=== PATIENT | female | born 1970 | race Two or more races ===

== ENCOUNTER → 2022-01-31 08:39 | Outpatient (CLI) | payer BC, SELFPAY ==
[2022-01-31 19:48] LABS: Benzodiazepines Screen,Urine Negative ng/ml (<200)
[2022-01-31 19:49] LABS: Amphetamine/Metha Screen,Urine Negative ng/ml (<1000)
[2022-01-31 19:50] LABS: Barbiturates Screen,Urine Negative ng/ml (<200); Cannabinoid Screen,Urine Negative ng/ml (<50)
[2022-01-31 19:51] LABS: Cocaine Screen,Urine Negative ng/ml (<300); Methadone Screen,Urine Negative ng/ml (<300)
[2022-01-31 19:52] LABS: Opiate Screen,Urine Positive ng/ml (<300)
[2022-01-31 19:53] LABS: Phencyclidine Screen,Urine Negative ng/ml (<25)
== END ==
PROVIDERS: PCP Emergency Medicine; Visit Provider Emergency Medicine
DX: M06.9 Rheumatoid arthritis, unspecified (principal); Z79.899 Other long term (current) drug therapy
CPT/HCPCS: 80305

== ENCOUNTER → 2022-03-30 09:08 | Outpatient (CLI) | payer BC, SELFPAY ==
[2022-03-29 19:24] LABS: Barbiturates Screen,Urine Negative ng/ml (<200); Benzodiazepines Screen,Urine Negative ng/ml (<200)
[2022-03-29 19:25] LABS: Amphetamine/Metha Screen,Urine Negative ng/ml (<1000)
[2022-03-29 19:26] LABS: Cannabinoid Screen,Urine Negative ng/ml (<50); Cocaine Screen,Urine Negative ng/ml (<300)
[2022-03-29 19:27] LABS: Methadone Screen,Urine Negative ng/ml (<300)
[2022-03-29 19:28] LABS: Opiate Screen,Urine Positive ng/ml (<300); Phencyclidine Screen,Urine Negative ng/ml (<25)
== END ==
PROVIDERS: PCP Emergency Medicine; Visit Provider Emergency Medicine
DX: Z79.899 Other long term (current) drug therapy (principal)
CPT/HCPCS: 80305

== ENCOUNTER 2022-07-08 12:40 | Emergency (ER) | payer BC, SELFPAY ==
--- NOTE | 2022-07-08 12:57 | XR_ITS ---
FINAL REPORT CLINICAL HISTORY: PAIN FINDINGS: Right femur Two views were obtained. There is no acute fracture or dislocation. There are post ORIF changes. The hardware is unremarkable. The joint spaces appear normal. No soft tissue abnormality is identified. IMPRESSION: No acute process. Reviewed, Interpreted and Dictated by Nelson Overton MD Transcribed by Aniyah Zaldivar Authenticated and [facility]
--- NOTE | 2022-07-08 12:57 | XR_ITS ---
FINAL REPORT CLINICAL HISTORY: TWISTED HER HIP WHEN A CAT RAN BETWEEN HER LEGS FINDINGS: Right hip Three views were obtained. There is no acute fracture or dislocation. There are post ORIF changes of the right femur. There is no acute bony or hardware abnormality. The joint spaces appear normal. No soft tissue abnormality is identified. IMPRESSION: No acute process. Reviewed, Interpreted and Dictated by Nelson Overton MD Transcribed by Aniyah Zaldivar Authenticated and [facility]
[2022-07-08 13:00] VITALS: BP 148/92; PULSE 67; RESP 19; TEMP 37; O2SAT 99; BMI 28.0
--- NOTE | 2022-07-08 13:16 | EXP.UTC ---
Discharge Plan Disposition Patient Disposition: Home, Self-Care Condition: Good Prescriptions Prescriptions: No Action pregabalin [Lyrica] 150 mg capsule 150 mg PO BID albuterol sulfate [ProAir HFA] 90 mcg/actuation HFA aerosol inhaler 2 puff INHALATION Q4-6H PRN methocarbamol 750 mg tablet 750 mg PO BID PRN Spiriva with HandiHaler 18 mcg capsule, w/inhalation device 1 cap IH DAILY Rx Instructions: puncture 1 cap using device; one dose = 2 inhalations Flovent Diskus 50 mcg/actuation blister with device 1 inh IH BID nystatin [Nyamyc] 100,000 unit/gram powder 1 applic TP DAILY Qty: 60 0RF clotrimazole-betamethasone 1-0.05 % cream 1 applic TP BID Qty: 45 0RF clonazepam 0.5 mg tablet 0.5 mg PO DAILY Qty: 30 1RF oxycodone-acetaminophen [Percocet] 7.5-325 mg tablet 1 tab PO QID PRN (Reason: pain) Qty: 120 0RF duloxetine 60 mg capsule,delayed release(DR/EC) See Rx Instructions .ROUTE .COMPLEX Qty: 30 1RF Dose Instruction: TAKE 1 CAPSULE BY MOUTH EVERY DAY Rx Instructions: TAKE 1 CAPSULE BY MOUTH EVERY DAY amlodipine [Norvasc] 5 mg tablet 5 mg PO DAILY Qty: 30 0RF Referrals Follow up/Referrals: Kavon Flynn MD [Primary Care Provider] - See instructions Activity Restrictions/Add. Instructions Additional Instructions/Restrictions: *weight bearing as tolerated *RICE, Rest the extremity, Ice 15-20 minutes 3-4 times daily, Compress- wear the peter wrap as discussed as much as possible to help reduce swelling and pain, Elevate the extremity when at rest Follow up with your Orthopedic Surgeon if pain continues *Ibuprofen 600-800mg every 6-8 hours as needed for pain an inflammation. If need something more can take Tylenol in between doses of Ibuprofen to help if you can take them Immediately follow up with your family doctor for new or worsening of symptoms, or no noticeable improvement over the next 3-5 days Clinical Impressions Clinical Impression: Leg pain Instructions Patient Instructions: DI for Hip Pain, DI for Leg Pain Discharge ED Provider: Keri Clements [facility] [place] HPI General Stated complaint: right side hip/back/leg pain Source of Information: Patient Time Seen by Provider: 07/08/22 13:17 Description of Symptoms (Recalled from Triage Doc. by RN): pt states that she had a rt hip replacement back in december and she was home 2 days ago and her cat ran between her legs causing her to twist hard and is now having pain in that hip and wants to make sure she hasn't injured it HEENT Symptoms (Recalled from RN notes): No Resp Symptoms (Recalled from RN notes): No Skin Symptoms (Recalled from RN notes): No MS Symptoms (Recalled from RN notes): Yes Functional Status (Recalled from RN notes): wnl History of Present Illness Provider Complaint: Patient states that she had surgery in December and had hip replacement and mahamed placed State that she has been doing ok but a couple days ago her cat ran between her legs and slipped but didnt fall and she said she has been having pain ever since in her hip and leg area States that she wanted to come in and get an xray to make sure she didnt hurt anything Related Data Home Medications Medication Instructions Recorded Confirmed albuterol sulfate 90 mcg/actuation 2 puff inhalation Q4-6H PRN 12/27/21 05/27/22 aerosol inhaler (ProAir HFA) pregabalin 150 mg capsule (Lyrica) 150 mg PO BID 12/27/21 05/27/22 fluticasone propionate 50 1 inh inhalation BID 03/29/22 05/27/22 mcg/actuation blister powder for inhalation (Flovent Diskus) methocarbamol 750 mg tablet 750 mg PO BID PRN 03/29/22 05/27/22 tiotropium bromide 18 mcg capsule 1 cap inhalation DAILY 03/29/22 05/27/22 with inhalation device (Spiriva with HandiHaler) Previous Rx's Medication Instructions Recorded duloxetine 60 mg capsule,delayed See Rx Instructions .Route 05/25/22 release .COMPLEX #30 caps clonazepam 0.5 mg tablet 0.5 mg PO BAN
[2022-07-08 14:27] VITALS: BP 148/92; PULSE 67; RESP 19; TEMP 37; O2SAT 99
== END 2022-07-08 14:28 | disposition home or self-care (01) ==
PROVIDERS: Emergency Provider Nurse Practitioner; PCP Emergency Medicine
DX: M25.551 Pain in right hip (principal); M79.604 Pain in right leg; M54.9 Dorsalgia, unspecified; I10 Essential (primary) hypertension; F17.200 Nicotine dependence, unspecified, uncomplicated; Z79.51 Long term (current) use of inhaled steroids; Z79.899 Other long term (current) drug therapy; Z88.2 Allergy status to sulfonamides; Z96.641 Presence of right artificial hip joint; W01.0XXA Fall on same level from slipping, tripping and stumbling without subsequent striking against object, initial encounter
CPT/HCPCS: 73502; 73552; 99213; G0463

== ENCOUNTER → 2022-10-31 14:20 | Outpatient (CLI) | payer BC, SELFPAY ==
[2022-10-31 19:41] LABS: Amphetamine/Metha Screen,Urine Negative ng/ml (<1000)
[2022-10-31 19:42] LABS: Barbiturates Screen,Urine Negative ng/ml (<200); Benzodiazepines Screen,Urine Negative ng/ml (<200)
[2022-10-31 19:43] LABS: Cannabinoid Screen,Urine Negative ng/ml (<50); Cocaine Screen,Urine Negative ng/ml (<300)
[2022-10-31 19:44] LABS: Methadone Screen,Urine Negative ng/ml (<300)
[2022-10-31 19:45] LABS: Opiate Screen,Urine Negative ng/ml (<300); Phencyclidine Screen,Urine Negative ng/ml (<25)
== END ==
PROVIDERS: PCP Emergency Medicine; Visit Provider Emergency Medicine
DX: Z79.899 Other long term (current) drug therapy (principal)
CPT/HCPCS: 80305

== ENCOUNTER → 2023-06-16 23:43 | Outpatient (CLI) | payer BC, SELFPAY ==
[2023-06-16 19:22] LABS: Benzodiazepines Screen,Urine Negative ng/ml (<200)
[2023-06-16 19:23] LABS: Amphetamine/Metha Screen,Urine Negative ng/ml (<1000); Barbiturates Screen,Urine Negative ng/ml (<200)
[2023-06-16 19:24] LABS: Methadone Screen,Urine Negative ng/ml (<300)
[2023-06-16 19:25] LABS: Cannabinoid Screen,Urine Negative ng/ml (<50); Cocaine Screen,Urine Negative ng/ml (<300)
[2023-06-16 19:27] LABS: Opiate Screen,Urine Positive ng/ml (<300); Phencyclidine Screen,Urine Negative ng/ml (<25)
== END ==
PROVIDERS: PCP Emergency Medicine; Visit Provider Emergency Medicine
DX: Z79.899 Other long term (current) drug therapy (principal)
CPT/HCPCS: 80305

== ENCOUNTER 2023-10-10 07:13 | Outpatient (CLI) | payer BC, SELFPAY ==
[2023-10-10 20:25] LABS: Amphetamine/Metha Screen,Urine Negative ng/ml (<1000); Barbiturates Screen,Urine Negative ng/ml (<200); Benzodiazepines Screen,Urine Negative ng/ml (<200); Cannabinoid Screen,Urine Negative ng/ml (<50); Cocaine Screen,Urine Negative ng/ml (<300); Methadone Screen,Urine Negative ng/ml (<300); Opiate Screen,Urine Positive ng/ml (<300); Phencyclidine Screen,Urine Negative ng/ml (<25)
[2023-10-19 13:21] LABS: Alprazolam Negative (Cutoff=100); Benzodiazepines Negative ng/mL (Cutoff=100); Clonazepam Negative (Cutoff=100); Flurazepam Negative (Cutoff=100); Lorazepam Negative (Cutoff=100); Midazolam Negative (Cutoff=100); Opiates Negative (Cutoff=100); Oxycodone (GC/MS) >3000 ng/mL (Cutoff=100); Oxymorphone (GC/MS) 1031 ng/mL (Cutoff=100); Temazepam Negative (Cutoff=100); Triazolam Negative (Cutoff=100)
== END 2023-10-10 23:59 ==
LOC: LAB.DROPOF 10-11 07:15
PROVIDERS: PCP Internal Medicine; Visit Provider Internal Medicine
DX: Z79.899 Other long term (current) drug therapy (principal)
CPT/HCPCS: 80307; 80346; 80361; 80365; 87086; G0480

== ENCOUNTER 2023-10-12 10:32 | Outpatient (CLI) | payer BC, SELFPAY | END 2023-10-12 23:59 | LOC: LAB.DROPOF 10-20 10:32 | PROVIDERS: PCP Internal Medicine; Visit Provider Internal Medicine | DX: Z79.899 Other long term (current) drug therapy (principal) | CPT/HCPCS: 80346; 80361; 80365; G0480 ==

== ENCOUNTER 2023-11-30 18:18 | Outpatient (CLI) | payer BC, SELFPAY ==
[2023-11-30 18:06] LABS: Alanine Aminotransferase 15 U/L (12-78); Albumin Level 4.1 g/dl (3.5-5.0); Albumin/Globulin Ratio 1.3 (1.1-1.8); Alkaline Phosphatase 158 U/L (38-126); Anion Gap 11.1 mEq/L (5-15); Aspartate Amino Transferase 25 U/L (14-36); Basophils % 0.2 % (0.1-2.0); Bilirubin,Total 0.2 mg/dl (0.2-1.3); Blood Urea Nitrogen 6 mg/dl (7-17); Calcium 9.9 mg/dl (8.4-10.2); Carbon Dioxide 32 mmol/L (22.0-30.0); Chloride 101 mmol/L (98-107); Chol/HDL Ratio 5.6 (1-3.5); Cholesterol 225 mg/dl (140-200); Eosinophils # 0.1 K/mm3 (0.0-0.4); Eosinophils % 1.4 % (0.1-12.0); Estimated Glomerular Filt Rate 105 ml/min (>60); GFR (African American) 128 ML/MIN (>60); Globulin 3.1 g/dL (1.3-3.2); Glucose 115 mg/dl (74-100); HDL Cholesterol 40 mg/dl (40-60); Hemoglobin 9.6 g/dL (12.2-16.2); Lymphocytes # 2.3 K/mm3 (0.7-4.5); Lymphocytes % 23.8 % (10-50); Mean Corpuscular HGB Conc 35.3 g/dL (31.8-35.4); Mean Corpuscular Hemoglobin 30.5 pg (27.0-31.2); Mean Corpuscular Volume 86.2 fl (81-99); Mean Platelet Volume 8.9 fl (7.4-10.4); Monocytes # 0.6 K/mm3 (0.1-1.0); Monocytes % 6.7 % (1.7-9.3); Neutrophils # 6.5 K/mm3 (1.8-7.8); Neutrophils % 67.9 % (37.0-80.0); Platelet Count 575 K/mm3 (142-424); Potassium 4.1 mmoL/L (3.5-5.1); Red Blood Count 3.14 M/mm3 (4.20-5.40); Red Cell Distribution Width 16.7 % (11.5-17.5); Sodium 140 mmol/L (136-145); Total Protein,Serum 7.2 g/dl (6.3-8.2); Triglycerides 238 mg/dl (30-150); VLDL Cholesterol 48 mg/dL (0-40); White Blood Count 9.6 K/mm3 (4.8-10.8)
[2023-11-30 18:17] LABS: Direct LDL Cholesterol 128.55 mg/dL (100-129)
[2023-11-30 18:23] LABS: 25-OH Vitamin D, Total 29.7 ng/mL (30-100)
[2023-11-30 19:41] LABS: Microalbumin/Creatinine Ratio 24.6
[2023-11-30 19:46] LABS: Creatinine,Urine Random 94 mg/dL (Not Estab.)
== END 2023-11-30 23:59 ==
LOC: LAB.DROPOF 18:18
PROVIDERS: PCP Internal Medicine; Visit Provider Internal Medicine
DX: R53.83 Other fatigue (principal); E55.9 Vitamin D deficiency, unspecified; Z68.23 Body mass index [BMI] 23.0-23.9, adult
CPT/HCPCS: 80053; 80061; 82043; 82306; 82570; 85025

== ENCOUNTER 2023-12-25 19:05 | Outpatient (CLI) | payer BC, SELFPAY ==
[2023-12-25 18:40] LABS: Basophils % 0.5 % (0.1-2.0); Eosinophils % 0.1 % (0.1-12.0); Hematocrit 33.1 % (37.0-47.0); Hemoglobin 9.8 g/dL (12.2-16.2); Lymphocytes # 1.1 K/mm3 (0.7-4.5); Lymphocytes % 11.9 % (10-50); Mean Corpuscular HGB Conc 29.5 g/dL (31.8-35.4); Mean Corpuscular Hemoglobin 24.3 pg (27.0-31.2); Mean Corpuscular Volume 82.5 fl (81-99); Mean Platelet Volume 9.5 fl (7.4-10.4); Monocytes # 0.2 K/mm3 (0.1-1.0); Monocytes % 2.3 % (1.7-9.3); Neutrophils # 7.7 K/mm3 (1.8-7.8); Neutrophils % 85.2 % (37.0-80.0); Platelet Count 526 K/mm3 (142-424); Red Blood Count 4.01 M/mm3 (4.20-5.40); Red Cell Distribution Width 16.6 % (11.5-17.5); White Blood Count 9.1 K/mm3 (4.8-10.8)
[2023-12-25 18:45] LABS: MANUAL DIFFERENTIAL MANUAL DIFFERENTIAL (MANUAL DIFF)
[2023-12-25 19:38] LABS: Eosinophils % 1 % (0-3); Hypochromasia 2+; Lymphocytes % 17 % (10-50); Monocytes % 1 % (2-9); Neutrophils % 81 % (42-76); Platelet Estimate Slight Increase; Total Cells Counted 100
[2023-12-25 20:06] LABS: Vitamin B12 342 pg/mL (239-931)
[2023-12-25 21:29] LABS: Iron 31 ug/dL (37-170)
[2023-12-25 21:38] LABS: Total Iron Binding Capacity 480 ug/dL (265-497)
[2023-12-25 22:04] LABS: Ferritin 6.68 ng/ml (11.1-264)
[2023-12-27 17:42] LABS: Peripheral Smear Review Scanned Result
== END 2023-12-25 23:59 ==
LOC: LAB.DROPOF 19:06
PROVIDERS: PCP Internal Medicine; Visit Provider Internal Medicine
DX: R53.83 Other fatigue (principal); F41.9 Anxiety disorder, unspecified; Z79.899 Other long term (current) drug therapy; F32.A Depression, unspecified
CPT/HCPCS: 82607; 82728; 83540; 83550; 83735; 85007; 85025

== ENCOUNTER 2024-02-29 11:59 | Outpatient (CLI) | payer BC, SELFPAY ==
[2024-02-29 18:20] LABS: Basophils % 0.3 % (0.1-2.0); Eosinophils # 0.1 K/mm3 (0.0-0.4); Eosinophils % 0.8 % (0.1-12.0); Hematocrit 36.7 % (37.0-47.0); Hemoglobin 11.2 g/dL (12.2-16.2); Lymphocytes % 12.6 % (10-50); Mean Corpuscular HGB Conc 30.4 g/dL (31.8-35.4); Mean Corpuscular Hemoglobin 25.3 pg (27.0-31.2); Mean Corpuscular Volume 83.2 fl (81-99); Mean Platelet Volume 9.8 fl (7.4-10.4); Monocytes # 0.2 K/mm3 (0.1-1.0); Monocytes % 2.2 % (1.7-9.3); Neutrophils # 6.4 K/mm3 (1.8-7.8); Neutrophils % 84.1 % (37.0-80.0); Platelet Count 702 K/mm3 (142-424); Red Blood Count 4.42 M/mm3 (4.20-5.40); Red Cell Distribution Width 24.4 % (11.5-17.5); White Blood Count 7.6 K/mm3 (4.8-10.8)
[2024-03-02 18:13] LABS: Peripheral Smear Review Scanned Result
== END 2024-02-29 23:59 | disposition home or self-care (01) ==
LOC: LAB.DROPOF 03-01 11:59
PROVIDERS: PCP Internal Medicine; Visit Provider Internal Medicine
DX: M79.7 Fibromyalgia (principal)
CPT/HCPCS: 85025

== ENCOUNTER 2024-04-15 16:35 | Emergency (ER) | payer BC, SELFPAY ==
[2024-04-15 17:29] VITALS: BP 140/84; PULSE 104; O2SAT 99
[2024-04-15 17:30] VITALS: BP 140/84; PULSE 104; RESP 18; TEMP 36.7; O2SAT 99; BMI 27.9
--- NOTE | 2024-04-15 17:35 | XR_ITS ---
PROCEDURE INFORMATION: Exam: XR Right Femur Exam date and time: 04/15/2024 6:17 PM Age: 53 years old Clinical indication: Injury or trauma; Fall; Blunt trauma; Thigh or upper leg; Right; Additional info: Fall, pain TECHNIQUE: Imaging protocol: Radiologic exam of the right femur. Views: 2 views. COMPARISON: CR XR FEMUR RT 2V 07/08/2022 1:04 PM FINDINGS: Bones/joints: Status post ORIF right femur. Evidence of hardware revision. Hardware appears intact. Soft tissues: Unremarkable. IMPRESSION: Intact ORIF. No evidence of acute injury or hardware failure.
--- NOTE | 2024-04-15 17:35 | CT_ITS ---
PROCEDURE INFORMATION: Exam: CT Head Without Contrast Exam date and time: 04/15/2024 6:04 PM Age: 53 years old Clinical indication: Injury or trauma; Fall; Blunt trauma (contusions or hematomas); Additional info: Fall, L periorbital bruising TECHNIQUE: Imaging protocol: Computed tomography of the head without contrast. Radiation optimization: All CT scans at this facility use at least one of these dose optimization techniques: automated exposure control; mA and/or kV adjustment per patient size (includes targeted exams where dose is matched to clinical indication); or iterative reconstruction. COMPARISON: CT HEAD/BRAIN WO CON 04/15/2024 6:04 PM FINDINGS: Brain: Normal. No hemorrhage. Unremarkable white matter. No mass effect. Cerebral ventricles: No ventriculomegaly. Paranasal sinuses: Visualized sinuses are unremarkable. No fluid levels. Mastoid air cells: Visualized mastoid air cells are well aerated. Bones: Unremarkable. No acute fracture. Soft tissues: focal subcutaneous hematoma adjacent to the anterolateral left orbital rim. IMPRESSION: No evidence of acute intracranial abnormality.
--- NOTE | 2024-04-15 17:35 | XR_ITS ---
PROCEDURE INFORMATION: Exam: XR Right Hip Exam date and time: 04/15/2024 6:17 PM Age: 53 years old Clinical indication: Injury or trauma; Fall; Blunt trauma (contusions or hematomas); Right; Hip; Additional info: Fall, R hip pain TECHNIQUE: Imaging protocol: Radiologic exam of the right hip. Views: 2 or 3 views hip with pelvis when performed. COMPARISON: CR XR HIP RT 2-3V W/PELVIS 07/08/2022 1:03 PM FINDINGS: Bones/joints: Status post ORIF right femur. Evidence of hardware revision since 07/08/2022. Hardware appears intact. Soft tissues: Unremarkable. IMPRESSION: Intact ORIF. No evidence of acute injury or hardware failure. Hardware appears intact.
--- NOTE | 2024-04-15 17:35 | CT_ITS ---
PROCEDURE INFORMATION: Exam: CT Thoracic Spine Without Contrast Exam date and time: 04/15/2024 6:12 PM Age: 53 years old Clinical indication: Injury or trauma; Fall; Blunt trauma (contusions or hematomas); Additional info: Fall pain TECHNIQUE: Imaging protocol: Computed tomography of the thoracic spine without contrast. Radiation optimization: All CT scans at this facility use at least one of these dose optimization techniques: automated exposure control; mA and/or kV adjustment per patient size (includes targeted exams where dose is matched to clinical indication); or iterative reconstruction. COMPARISON: CT CERVICAL SPINE WO CON 04/15/2024 6:09 PM FINDINGS: Bones/joints: Generalized osteopenia. Soft tissues: Unremarkable. Lungs: Incomplete visualization of patchy bilateral airspace opacities upper lobes. IMPRESSION: No evidence of acute osseous injury.
--- NOTE | 2024-04-15 17:35 | CT_ITS ---
PROCEDURE INFORMATION: Exam: CT Cervical Spine Without Contrast Exam date and time: 04/15/2024 6:09 PM Age: 53 years old Clinical indication: Injury or trauma; Fall; Blunt trauma TECHNIQUE: Imaging protocol: Computed tomography of the cervical spine without contrast. Radiation optimization: All CT scans at this facility use at least one of these dose optimization techniques: automated exposure control; mA and/or kV adjustment per patient size (includes targeted exams where dose is matched to clinical indication); or iterative reconstruction. COMPARISON: CT FACIAL BONES WO CON 04/15/2024 6:06 PM FINDINGS: Bones: Cervical spondylosis with multilevel disc degeneration. Advanced changes of disc degeneration C4-C5, 5 6 and C6-C7. Approximate 2 mm anterolisthesis of C4 with respect to C5. Lungs: Incomplete visualization of patchy bilateral airspace opacities in the upper lobes. Findings suspicious for possible pneumonia. Clinically correlate. Soft tissues: Unremarkable. IMPRESSION: 1. No evidence of acute osseous injury. 2. Incomplete visualization of patchy bilateral airspace opacities in the upper lobes. Findings suspicious for possible pneumonia. Clinically correlate.
--- NOTE | 2024-04-15 17:35 | CT_ITS ---
PROCEDURE INFORMATION: Exam: CT Maxillofacial Without Contrast Exam date and time: 04/15/2024 6:06 PM Age: 53 years old Clinical indication: Injury or trauma; Fall; Blunt trauma (contusions or hematomas); Eyelid; Not specified; Additional info: Fall, L periorbital bruising TECHNIQUE: Imaging protocol: Computed tomography of the face without contrast. Radiation optimization: All CT scans at this facility use at least one of these dose optimization techniques: automated exposure control; mA and/or kV adjustment per patient size (includes targeted exams where dose is matched to clinical indication); or iterative reconstruction. COMPARISON: CT HEAD/BRAIN WO CON 04/15/2024 6:04 PM FINDINGS: Orbital cavities: Orbits are normal. Globes are unremarkable. Paranasal sinuses: Left sphenoid sinus inflammatory changes. Bones: No acute fracture. Soft tissues: Left periorbital soft tissue swelling. IMPRESSION: No evidence of acute osseous injury.
--- NOTE | 2024-04-15 17:35 | CT_ITS ---
PROCEDURE INFORMATION: Exam: CT Lumbar Spine Without Contrast Exam date and time: 04/15/2024 6:15 PM Age: 53 years old Clinical indication: Injury or trauma; Fall; Blunt trauma (contusions or hematomas); Additional info: Fall, pain TECHNIQUE: Imaging protocol: Computed tomography of the lumbar spine without contrast. Radiation optimization: All CT scans at this facility use at least one of these dose optimization techniques: automated exposure control; mA and/or kV adjustment per patient size (includes targeted exams where dose is matched to clinical indication); or iterative reconstruction. COMPARISON: CT THORACIC SPINE WO CON 04/15/2024 6:12 PM FINDINGS: Bones/joints: Osteopenia. Severe changes of disc degeneration L5-S1. Soft tissues: Unremarkable. IMPRESSION: No evidence of acute osseous injury.
--- NOTE | 2024-04-15 17:37 | ED_ITS ---
Discharge Plan Disposition Patient Disposition: Home, Self-Care Prescriptions Prescriptions: New doxycycline hyclate 100 mg tablet 100 mg PO BID 7 Days Qty: 14 0RF No Action nystatin [Nyamyc] 100,000 unit/gram powder 1 applic TP DAILY Qty: 60 1RF clobetasol 0.05 % solution 1 applic topical BID Qty: 50 2RF cholecalciferol (vitamin D3) 125 mcg (5,000 unit) capsule 125 mcg PO DAILY 90 Days Qty: 90 3RF polyethylene glycol 3350 [Miralax] 17 gram/dose powder 17 g PO DAILY Qty: 510 2RF naloxone 4 mg/actuation spray,non-aerosol intranasal sucralfate [Carafate] 1 gram tablet 1 g PO TID Qty: 90 0RF ferrous gluconate 240 mg (27 mg iron) tablet 240 mg PO BID Qty: 60 4RF duloxetine 60 mg capsule,delayed release(DR/EC) 120 mg PO DAILY Qty: 180 3RF dextroamphetamine-amphetamine [Adderall] 10 mg tablet 10 mg PO BID Qty: 60 0RF Rx Instructions: administer doses at least 4-6 hours apart oxycodone-acetaminophen [Percocet] 10-325 mg tablet 1 tab PO QID Qty: 120 0RF pregabalin [Lyrica] 150 mg capsule 150 mg PO BID 30 Days Qty: 60 1RF acyclovir 400 mg tablet 400 mg PO DAILY PRN (Reason: fever blisters) Qty: 20 0RF promethazine 25 mg tablet 25 mg PO TID PRN (Reason: nausea and vomiting) Qty: 60 1RF albuterol sulfate [Ventolin HFA] 90 mcg/actuation HFA aerosol inhaler See Rx Instructions .ROUTE .COMPLEX Qty: 18 4RF Dose Instruction: INHALE 2 PUFFS BY MOUTH EVERY 6 HOURS NEEDED Rx Instructions: INHALE 2 PUFFS BY MOUTH EVERY 6 HOURS NEEDED Spiriva with HandiHaler 18 mcg capsule, w/inhalation device See Rx Instructions .ROUTE .COMPLEX Qty: 30 3RF Dose Instruction: INHALE THE CONTENTS OF ONE CAPSULE ONCE DAILY Rx Instructions: INHALE THE CONTENTS OF ONE CAPSULE ONCE DAILY meloxicam 15 mg tablet See Rx Instructions .ROUTE .COMPLEX Qty: 30 2RF Dose Instruction: TAKE 1 TABLET BY MOUTH DAILY FOR 30 DAYS Rx Instructions: TAKE 1 TABLET BY MOUTH DAILY FOR 30 DAYS loratadine 10 mg tablet 10 mg PO DAILY Qty: 30 4RF amlodipine 10 mg tablet See Rx Instructions .ROUTE .COMPLEX Qty: 90 0RF Dose Instruction: TAKE 1 TABLET BY MOUTH ONCE DAILY Rx Instructions: TAKE 1 TABLET BY MOUTH ONCE DAILY Referrals Follow up/Referrals: Wally Porter DO [Primary Care Provider] - See instructions Activity Restrictions/Add. Instructions Additional Instructions/Restrictions: At this time it was felt you are safe to be discharged home. If new or worsening symptoms please do not hesitate to return the emergency department. Please take antibiotics as prescribed. Please follow-up with your family doctor in 1 week for continued evaluation. Clinical Impressions Clinical Impression: Fall, Fibromyalgia, Black eye of left side, Pneumonia Discharge ED Provider: Inocente Mathew General Adult HPI General Chief complaint: PAIN Stated complaint: AO 04/11/24 2330 fell right blace eye,right knee p Time Seen by Provider: 04/15/24 17:29 History of Present Illness HPI narrative: Patient is a 53-year-old female with past medical history of previous traumatic right femur fracture, fibromyalgia, rheumatoid arthritis, not on anticoagulants who presents emergency department for evaluation of traumatic injury sustained in a fall. Patient had a mechanical fall forwards on 11 April striking her head without loss of consciousness after slipping. No vision changes reported. No anticoagulants. She is also complaining of some anterior chest wall discomfort. She has diffuse pain with her fibromyalgia at all times however is at his baseline in the extremities and back. Related Data Home Medications Medication Instructions Recorded Confirmed naloxone 4 mg/actuation nasal spray ml intranasal 12/26/22 04/15/24 Previous Rx's Medication Instructions Recorded polyethylene glycol 3350 17 17 g PO DAILY #510 grams 10/31/22 gram/dose oral powder (Miralax) sucralfate 1 gram tablet (Carafate) 1 g PO TID #90 tabs 02/21/23 albuterol sulfate 90 mcg/actuation See Rx Instructions .Route 05/31/23 aerosol inhaler (Ventolin HFA) .COMPLEX #18 grams nystatin 100,000 unit/gram topical 1 applic topical DAILY #60 grams 06/16/23 powder (Nyamyc) clobetasol 0.05 % scalp solution 1 applic topical BID #50 mL 08/14/23 tiotropium bromide 18 mcg capsule See Rx Instructions .Route 10/18/23 with inhalation device (Spiriva .COMPLEX #30 caps with HandiHaler) cholecalciferol (vitamin D3) 125 125 mcg PO DAILY 90 days #90 caps 12/25/23 mcg (5,000 unit) capsule duloxetine 60 mg capsule,delayed 120 mg (2 x 60 mg) PO DAILY #180 02/29/24 release caps ferrous gluconate 240 mg (27 mg 240 mg PO BID #60 tabs 02/29/24 iron) tablet meloxicam 15 mg tablet See Rx Instructions .Route 03/13/24 .COMPLEX #30 tabs loratadine 10 mg tablet 10 mg PO DAILY #30 tabs 04/09/24 acyclovir 400 mg tablet 400 mg PO DAILY PRN fever blisters 04/15/24 #20 tabs amlodipine 10 mg tablet See Rx Instructions .Route 04/15/24 .COMPLEX #90 tabs dextroamphetamine-amphetamine 10 10 mg PO BID #60 tabs 04/15/24 mg tablet (Adderall) doxycycline hyclate 100 mg tablet 100 mg PO BID pneumonia 7 days #14 04/15/24 tabs oxycodone-acetaminophen 10 mg-325 1 tab PO QID #120 tabs 04/15/24 mg tablet (Percocet) pregabalin 150 mg capsule (Lyrica) 150 mg PO BID 30 days #60 caps 04/15/24 promethazine 25 mg tablet 25 mg PO TID PRN nausea and 04/15/24 vomiting #60 tabs Allergies Allergy/AdvReac Type Severity Reaction Status Date / Time Sulfa (Sulfonamide Allergy Intermediate Hives Verified 04/15/24 15:28 Antibiotics) [facility] Disclaimer: The information contained in this section may have been updated after the patient was seen, as this information can be updated by other users. Medical History Hypertension Surgical History History of right hip replacement Social History Smoking Status: Current every day smoker alcohol intake: current alcohol intake frequency: holidays/special occasions only substance use type: denies use current occupational status: unemployed Travel in the last 8 weeks: None ROS Obtained: Yes Systems reviewed as appropriate & no additional complaints except as documented Physical Exam General General appearance: alert and in no apparent distress Head Head exam: other (Left-sided periorbital ecchymosis and swelling, no exophthalmos.) Eye Eye exam: Present PERRL and EOMI ENT ENT exam: Present mucous membranes moist Neck Neck exam: Present normal inspection Chest Chest inspection: Present normal inspection and symmetric chest wall rise Respiratory Respiratory exam: Present normal lung sounds bilaterally; Absent respiratory distress Cardiovascular Cardiovascular exam: Present regular rate and normal rhythm Abdominal Exam Abdominal exam: Present soft; Absent tenderness Extremities Exam Extremities exam: Present normal inspection and other (Mild diffuse tenderness, focal tenderness in the right femur throughout with underlying well-healed scar, active and passive range of motion all joints of the bilateral upper and lower extremities intact, patient was ambulatory.) Back Exam Back exam: Present other (Diffuse midline spinal tenderness and left neck tenderness.) Neurological Exam Neurological exam: Present alert and CN II-XII intact; Absent motor sensory deficit Psychiatric Psychiatric exam: Present normal affect Skin Skin exam: Present warm and dry Medical Decision Making Sunny Inquiry Pt receiving controlled substance: No Vital Signs: 04/15/24 17:29 04/15/24 17:30 04/15/24 17:40 Temperature 98.1 F Temperature Source Oral Pulse Rate 104 H 94 H Pulse Rate [Left Radial] 104 H Respiratory Rate 18 Blood Pressure 140/84 137/68 Blood Pressure [Right Arm] 140/84 Blood Pressure Mean [Right Arm] 102 02 Sat by Pulse Oximetry 99 99 97 Oxygen Delivery Method Room Air Room Air Room Air 04/15/24 18:48 Temperature Temperature Source Pulse Rate 80 Pulse Rate [Left Radial] Respiratory Rate Blood Pressure 133/75 Blood Pressure [Right Arm] Blood Pressure Mean [Right Arm] 02 Sat by Pulse Oximetry 93 L Oxygen Delivery Method Room Air Lab Data Lab Results 04/15/24 17:45: WBC 12.8 H, RBC 3.62 L, Hgb 10.3 L, Hct 32.5 L, MCV 89.7, MCH 28.4, MCHC 31.7 L, RDW 22.9 H, Plt Count 638 H, MPV 7.6, Neut % (Auto) 91.2 H, L ymph % (Auto) 6.0 L, [place] % (Auto) 2.3, Eos % (Auto) 0.4, Baso % (Auto) 0.1, N eut # (Auto) 11.6 H, Lymph # (Auto) 0.8, [place] # (Auto) 0.3, Eos # (Auto) 0.1, Baso # (Auto) 0.0, Total Counted 100, Neutrophils % (Manual) 88 H, Lymphocytes % (Manual) 11, Monocytes % (Manual) 1 L, Platelet Estimate Moderate increase, RBC Morphology Normal, Sodium 137, Potassium 4.1, Chloride 103, Carbon Dioxide 30, Anion Gap 8.1, BUN 18 H, Creatinine 0.90, Estimated Creat Clear 76, Estimated GFR 66, Est GFR ( Amer) 80, Glucose 140 H, Calcium 9.6, Total Bilirubin 0.3, AST 38 H, ALT 45, Alkaline Phosphatase 78, Troponin I < 0.01, Total Protein 7.5, Albumin 4.6, Globulin 2.9, Albumin/Globulin Ratio 1.6 04/15/24 17:45 04/15/24 17:45 Orders (Tests/Meds): ED MEDICATIONS Generic Name Dose Route Start Last Admin Trade Name Freq PRN Reason Stop Dose Admin Dexamethasone Sodium Phosphate 10 mg 04/15/24 19:40 Dexamethasone 4mg/Ml 1ml Vial IV 04/15/24 19:41 ONCE ONE Discontinued Medications Generic Name Dose Route Start Last Admin Trade Name Freq PRN Reason Stop Dose Admin Acetaminophen 1,000 mg 04/15/24 17:35 04/15/24 18:30 Acetaminophen 1,000mg/100ml Vial IV 04/15/24 17:36 1,000 mg ONCE ONE Administration Methocarbamol 1,000 mg 04/15/24 17:37 04/15/24 18:29 Methocarbamol 500mg Tablet PO 04/15/24 17:38 1,000 mg ONCE ONE Administration Morphine Sulfate 4 mg 04/15/24 17:35 04/15/24 18:29 Morphine 4mg/Ml Syringe IV 04/15/24 17:36 4 mg ONCE ONE Administration ORDERS Category Date Time Status CT cervical spine wo con Stat Cat Scan 04/15/24 17:[address] chest wo con Stat Cat Scan 04/15/24 17:[address] facial bones wo con Stat Cat Scan 04/15/24 17:[address] head/brain wo con Stat Cat Scan 04/15/24 17:[address] lumbar spine wo con Stat Cat Scan 04/15/24 17:[address] thoracic spine wo con Stat Cat Scan 04/15/24 17:35 Completed Femur XR right 2 views [XR femur RT 2V] Stat Exams 04/15/24 17:35 Completed Hip XR right minimum 2 views [XR hip RT 2-3V w/pelvis] Exams 04/15/24 17:35 Completed Stat CBC w/Auto Diff [Complete Blood Count Auto Diff] Stat Lab 04/15/24 17:45 Completed CMP [Comprehensive Metabolic Panel] Stat Lab 04/15/24 17:45 Completed Trop I [Troponin I] Stat Lab 04/15/24 17:45 Completed Troponin I Q3H Lab 04/15/24 20:45 Ordered Troponin I Q3H Lab 04/15/24 23:45 Ordered ECG Data Tracing #1: Independently interpreted by me rate is 100, rhythm is regular, axis is normal, no ST elevation in anatomical contiguous leads, QTc 379. Medical Decision Narrative: In summary patient is a 53-year-old female past medical history described above who presents emergency department for evaluation of traumatic injury sustained in a fall. Patient is hemodynamically stable nontoxic-appearing upon arrival, afebrile. Patient has left-sided periorbital ecchymosis without exophthalmos, no concern for retro-ocular hematoma. Differential diagnosis includes spinal fracture for which C-spine precautions will be initiated, intracranial hemorrhage also on the differential, plain film of the right hip and right lower extremity will be obtained. Initial inventions include IV Tylenol, morphine, Robaxin. Initial workup reviewed by me, hematologic labs have slight leukocytosis, persistent thrombocytosis that is improved from prior, troponin undetectably low. Trauma survey negative for actionable pathology, no skull fracture, no acute intracranial hemorrhage. CT chest shows patchy bilateral airspace opacities most pronounced in the upper lobes, patient does have rheumatoid arthritis for which puts her at increased risk for lung disease or rheumatoid related lung pathology. She states that she has had some cough. She has no oxygen requirement, no significant respiratory distress, is well- appearing otherwise therefore no further workup is indicated at this time. Out of an abundance of caution patient was given a dose of steroids and will be discharged with a course of doxycycline will follow-up with her PCP. Critical Care Critical Care Time Critical Care Time: No
[2024-04-15 17:40] VITALS: BP 137/68; PULSE 94; O2SAT 97
--- NOTE | 2024-04-15 17:41 | CT_ITS ---
PROCEDURE INFORMATION: Exam: CT Chest Without Contrast; Diagnostic Exam date and time: 04/15/2024 6:18 PM Age: 53 years old Clinical indication: Injury or trauma; Fall; Blunt trauma (contusions or hematomas); Additional info: Fall, anterior midline chest pain TECHNIQUE: Imaging protocol: Diagnostic computed tomography of the chest without contrast. Radiation optimization: All CT scans at this facility use at least one of these dose optimization techniques: automated exposure control; mA and/or kV adjustment per patient size (includes targeted exams where dose is matched to clinical indication); or iterative reconstruction. COMPARISON: CT THORACIC SPINE WO CON 04/15/2024 6:12 PM FINDINGS: Lungs: Patchy bilateral airspace opacities most pronounced in the upper lobes . Consideration should be given for an acute inflammatory process. Changes related to chronic interstitial lung disease could not be entirely excluded. Bibasilar atelectasis versus parenchymal scarring. Pleural spaces: Unremarkable. No pneumothorax. No pleural effusion. Heart: Unremarkable. No cardiomegaly. No pericardial effusion. Coronary arteries: No evidence of coronary artery vascular calcification. Lymph nodes: Nonspecific mediastinal lymph nodes Vasculature: Regions of atherosclerotic vascular calcification involving the aortic arch. Bones/joints: Unremarkable. No acute fracture. Soft tissues: Unremarkable. Other findings: Evidence of prior granulomatous disease. IMPRESSION: Patchy bilateral airspace opacities most pronounced in the upper lobes . Consideration should be given for an acute inflammatory process. Changes related to chronic interstitial lung disease could not be entirely excluded.
--- NOTE | 2024-04-15 17:44 | ECG_ITS ---
APPROVED REPORT Exam: Resting ECG HR:100 bpm ECG Measurements Heart Rate 100 AXES OK 128 P 35 QRSd 74 QRS 22 QT 322 T 69 QTc 379 Conclusion SINUS TACHYCARDIA ABNORMAL RHYTHM ECG Electronically signed by : BIJAL HALL, 04/17/2024 09:27:39
[2024-04-15 17:55] LABS: Basophils % 0.1 % (0.1-2.0); Eosinophils # 0.1 K/mm3 (0.0-0.4); Eosinophils % 0.4 % (0.1-12.0); Hematocrit 32.5 % (37.0-47.0); Hemoglobin 10.3 g/dL (12.2-16.2); Lymphocytes # 0.8 K/mm3 (0.7-4.5); Mean Corpuscular HGB Conc 31.7 g/dL (31.8-35.4); Mean Corpuscular Hemoglobin 28.4 pg (27.0-31.2); Mean Corpuscular Volume 89.7 fl (81-99); Mean Platelet Volume 7.6 fl (7.4-10.4); Monocytes # 0.3 K/mm3 (0.1-1.0); Monocytes % 2.3 % (1.7-9.3); Neutrophils # 11.6 K/mm3 (1.8-7.8); Neutrophils % 91.2 % (37.0-80.0); Platelet Count 638 K/mm3 (142-424); Red Blood Count 3.62 M/mm3 (4.20-5.40); Red Cell Distribution Width 22.9 % (11.5-17.5); White Blood Count 12.8 K/mm3 (4.8-10.8)
--- NOTE | 2024-04-15 17:56 | PC.NURSE ---
pt is going to xray and ct
[2024-04-15 18:01] LABS: MANUAL DIFFERENTIAL MANUAL DIFFERENTIAL (MANUAL DIFF)
[2024-04-15 18:10] LABS: Chloride 103 mmol/L (98-107); Sodium 137 mmol/L (136-145)
[2024-04-15 18:11] LABS: Potassium 4.1 mmoL/L (3.5-5.1)
[2024-04-15 18:13] LABS: Alanine Aminotransferase 45 U/L (12-78); Anion Gap 8.1 mEq/L (5-15); Aspartate Amino Transferase 38 U/L (14-36); Blood Urea Nitrogen 18 mg/dl (7-17); Carbon Dioxide 30 mmol/L (22.0-30.0); Creatinine Clearance Estimated 76 mL/min (50-200); Estimated Glomerular Filt Rate 66 ml/min (>60); GFR (African American) 80 ML/MIN (>60)
[2024-04-15 18:14] LABS: Albumin Level 4.6 g/dl (3.5-5.0); Albumin/Globulin Ratio 1.6 (1.1-1.8); Alkaline Phosphatase 78 U/L (38-126); Bilirubin,Total 0.3 mg/dl (0.2-1.3); Calcium 9.6 mg/dl (8.4-10.2); Globulin 2.9 g/dL (1.3-3.2); Glucose 140 mg/dl (74-100); Total Protein,Serum 7.5 g/dl (6.3-8.2)
[2024-04-15 18:18] LABS: Lymphocytes % 11 % (10-50); Monocytes % 1 % (2-9); Neutrophils % 88 % (42-76); Platelet Estimate Moderate Increase; RBC Morphology Normal; Total Cells Counted 100
[2024-04-15 18:25] LABS: Troponin I < 0.01 ng/ml (0.00-0.034)
[2024-04-15] MEDS: METHOCARBAMOL 500MG TABLET 1000 MG PO (18:29)
[2024-04-15] MEDS: MORPHINE 4MG/ML SYRINGE 4 MG IV (18:29)
[2024-04-15] MEDS: ACETAMINOPHEN 1,000MG/100ML VIAL 1000 MG IV (18:30)
[2024-04-15 18:48] VITALS: BP 133/75; PULSE 80; O2SAT 93
[2024-04-15] MEDS: DEXAMETHASONE 4MG/ML 1ML VIAL 10 MG IV (19:47)
[2024-04-15 19:49] VITALS: BP 138/80; PULSE 70; RESP 20; TEMP 37.1; O2SAT 97
== END 2024-04-15 19:52 | disposition home or self-care (01) ==
PROVIDERS: Emergency Provider Emergency Medicine; PCP Internal Medicine
DX: J18.9 Pneumonia, unspecified organism (principal); S00.12XA Contusion of left eyelid and periocular area, initial encounter; M25.561 Pain in right knee; M54.2 Cervicalgia; R05.9 Cough, unspecified; W18.30XA Fall on same level, unspecified, initial encounter; M06.9 Rheumatoid arthritis, unspecified; I10 Essential (primary) hypertension; F17.210 Nicotine dependence, cigarettes, uncomplicated
CPT/HCPCS: 70450; 70486; 71250; 72125; 72128; 72131; 73502; 73552; 80053; 84484; 85007; 85025; 85027; 93005; 96374; 96375; 99285; J0131; J1100; J2270

== ENCOUNTER 2024-06-06 13:23 | Outpatient (CLI) | payer BC, SELFPAY ==
--- NOTE | 2024-06-06 13:23 | MM_ITS ---
PROCEDURE INFORMATION: Exam: MG Bilateral Screening 3D Mammography Exam date and time: 06/06/2024 1:11 PM Age: 54 years old Clinical indication: Screening examination TECHNIQUE: Imaging protocol: Bilateral Screening tomosynthesis and 2D mammography including computer-aided detection (CAD) when performed. COMPARISON: 1. MG MAMMO SCREENING DIGITAL TOMOSYNTHESIS BILATERAL W CAD 12/09/2020 8:13 AM 2. MG MAMMO DIAGNOSTIC DIGITAL TOMOSYNTHESIS BILATERAL W CAD 08/01/2017 1:16 PM FINDINGS: MAMMOGRAPHY: Breast composition: There are scattered areas of fibroglandular density. A portion of the label of the left MLO view obscures breast tissue. A repeat left MLO view is recommended. IMPRESSION: Patient will be recalled for this additional imaging and a full radiologic interpretation will be made at that time. ASSESSMENT: BI-RADS Category 0: Incomplete: Need additional imaging evaluation-Technical Recall
== END 2024-06-06 23:59 | disposition home or self-care (01) ==
LOC: RAD 13:23
PROVIDERS: PCP Internal Medicine; Visit Provider Internal Medicine
DX: Z12.31 Encounter for screening mammogram for malignant neoplasm of breast (principal)
CPT/HCPCS: 77063; 77067

== ENCOUNTER 2024-06-18 19:54 | Outpatient (CLI) | payer BC, SELFPAY ==
[2024-06-18 21:53] LABS: Basophils % 0.3 % (0.1-2.0); Eosinophils % 0.2 % (0.1-12.0); Hematocrit 34.4 % (37.0-47.0); Hemoglobin 10.4 g/dL (12.2-16.2); Lymphocytes # 1.8 K/mm3 (0.7-4.5); Lymphocytes % 16.9 % (10-50); Mean Corpuscular HGB Conc 30.3 g/dL (31.8-35.4); Mean Corpuscular Hemoglobin 29.2 pg (27.0-31.2); Mean Corpuscular Volume 96.3 fl (81-99); Mean Platelet Volume 9.8 fl (7.4-10.4); Monocytes # 0.4 K/mm3 (0.1-1.0); Monocytes % 3.6 % (1.7-9.3); Neutrophils # 8.2 K/mm3 (1.8-7.8); Neutrophils % 79.1 % (37.0-80.0); Platelet Count 571 K/mm3 (142-424); Red Blood Count 3.58 M/mm3 (4.20-5.40); White Blood Count 10.3 K/mm3 (4.8-10.8)
[2024-06-18 22:08] LABS: Creatinine,Urine Random 135 mg/dL (Not Estab.)
[2024-06-18 22:30] LABS: 25-OH Vitamin D, Total 49.7 ng/mL (30-100)
[2024-06-20 11:18] LABS: HBsAg Screen Negative (Negative); HCV Ab Non Reactive (Non Reactive); Hep A Ab, IGM Negative (Negative); Hep B Core Ab, IgM Negative (Negative)
== END 2024-06-18 23:59 | disposition home or self-care (01) ==
LOC: LAB.DROPOF 19:55
PROVIDERS: PCP Internal Medicine; Visit Provider Internal Medicine
DX: Z11.59 Encounter for screening for other viral diseases (principal); Z91.89 Other specified personal risk factors, not elsewhere classified; R73.03 Prediabetes; E55.9 Vitamin D deficiency, unspecified; J18.9 Pneumonia, unspecified organism; Z72.0 Tobacco use
CPT/HCPCS: 80074; 82043; 82306; 82570; 85025

== ENCOUNTER 2024-06-18 19:58 | Outpatient (CLI) | payer BC, SELFPAY | END 2024-06-18 23:59 | disposition home or self-care (01) | LOC: LAB.DROPOF 19:59 | PROVIDERS: PCP Internal Medicine; Visit Provider Internal Medicine | DX: Z02.9 Encounter for administrative examinations, unspecified (principal) ==

== ENCOUNTER 2024-10-23 14:20 | Outpatient (CLI) | payer MEDICARE, OTHER, SELFPAY ==
--- NOTE | 2024-10-23 14:25 | XR_ITS ---
FINAL REPORT CLINICAL HISTORY: pt with COPD..soa FINDINGS: There are underlying emphysematous changes. No acute pulmonary density is present. No significant pleural effusion. There is no pneumothorax. The heart is normal in size. The mediastinum is unremarkable. IMPRESSION: Emphysema without acute process. Reviewed, Interpreted and Dictated by Nelson Overton MD Transcribed by Aniyah Zaldivar Authenticated and [facility]
[2024-10-23 15:00] LABS: Basophils # 0.1 K/mm3 (0-0.2); Basophils % 0.3 % (0.1-2.0); Eosinophils # 0.1 K/mm3 (0.0-0.4); Eosinophils % 0.3 % (0.1-12.0); Hematocrit 34.9 % (37.0-47.0); Hemoglobin 10.5 g/dL (12.2-16.2); Lymphocytes # 4.3 K/mm3 (0.7-4.5); Lymphocytes % 22.8 % (10-50); Mean Corpuscular HGB Conc 30.1 g/dL (31.8-35.4); Mean Corpuscular Hemoglobin 27.1 pg (27.0-31.2); Mean Corpuscular Volume 89.9 fl (81-99); Mean Platelet Volume 9.7 fl (7.4-10.4); Monocytes # 1.2 K/mm3 (0.1-1.0); Monocytes % 6.2 % (1.7-9.3); Neutrophils # 13.1 K/mm3 (1.8-7.8); Neutrophils % 68.6 % (37.0-80.0); Platelet Count 707 K/mm3 (142-424); Red Blood Count 3.88 M/mm3 (4.20-5.40); Red Cell Distribution Width 17.5 % (11.5-17.5); White Blood Count 19.1 K/mm3 (4.8-10.8)
[2024-10-23 15:05] LABS: MANUAL DIFFERENTIAL MANUAL DIFFERENTIAL (MANUAL DIFF)
[2024-10-23 15:21] LABS: C-Reactive Protein 9.4 mg/L (0-4)
[2024-10-23 15:33] LABS: Eosinophils % 1 % (0-3); Lymphocytes % 25 % (10-50); Monocytes % 8 % (2-9); Neutrophils % 66 % (42-76); Total Cells Counted 100
[2024-10-23 15:34] LABS: Giant Platelets 1+; Platelet Estimate Slight Increase; Poikilocytosis 1+; Target Cells 1+
[2024-10-23 15:35] LABS: Ovalocytes 1+
[2024-10-26 14:39] LABS: Peripheral Smear Review Scanned Result
== END 2024-10-23 23:59 | disposition home or self-care (01) ==
LOC: LAB 14:22
PROVIDERS: PCP Internal Medicine; Visit Provider Internal Medicine
DX: J40 Bronchitis, not specified as acute or chronic (principal); J18.9 Pneumonia, unspecified organism; Z13.1 Encounter for screening for diabetes mellitus; M79.7 Fibromyalgia; D75.839 Thrombocytosis, unspecified; F17.200 Nicotine dependence, unspecified, uncomplicated
CPT/HCPCS: 36415; 71046; 83036; 85007; 85025; 85027; 86140

== ENCOUNTER 2024-12-25 14:22 | Outpatient (CLI) | payer MEDICARE, MEDICAID, SELFPAY ==
[2024-12-25 14:27] LABS: Anti-Centromere B Antibodies ND; Anti-DNA (DS) Ab Qn ND; Anti-Jo-1 ND; Antichromatin Antibodies ND; Antiscleroderma-70 Antibodies ND; RNP Antibodies ND; Sjogren's Anti-SS-A ND; Sjogren's Anti-SS-B ND
[2024-12-25 15:33] LABS: C-Reactive Protein 1.3 mg/L (0-4)
[2024-12-26 12:18] LABS: Antinuclear Antibodies (ANA) Negative (Negative)
[2024-12-30 11:12] LABS: Aspergillus fumigatus IgG Negative (Negative); Pigeon Serum Abs Negative (Negative)
[2024-12-30 12:12] LABS: Strongyloides IgG Antibody Negative (Negative)
== END 2024-12-25 23:59 | disposition home or self-care (01) ==
LOC: LAB 14:23
PROVIDERS: PCP Internal Medicine; Visit Provider Internal Medicine Pulmonary Disease
DX: J84.9 Interstitial pulmonary disease, unspecified (principal); R06.09 Other forms of dyspnea; D72.10 Eosinophilia, unspecified; F17.200 Nicotine dependence, unspecified, uncomplicated
CPT/HCPCS: 36415; 86038; 86140; 86331; 86602; 86606; 86609; 86682

== ENCOUNTER 2025-02-04 13:12 | Outpatient (CLI) | payer MEDICARE, MEDICAID, SELFPAY ==
--- NOTE | 2025-02-04 13:30 | CT_ITS ---
FINAL REPORT TECHNIQUE: Axial images were obtained through the chest without contrast. Supine inspiration and expiration and prone inspiration hi-resolution images were obtained and reviewed. Coronal and sagittal images were obtained and reviewed. This study was performed with techniques to keep radiation doses as low as reasonably achievable, (ALARA). Individualized dose reduction techniques using automated exposure control or adjustment of mA and/or kV according to the patient's size were employed. CLINICAL HISTORY: Shortness of breath High resolution x3 supine inspiration supine expiration prone inspiration COMPARISON: CT chest 04/15/2024 FINDINGS: There are few small scattered mediastinal lymph nodes. The heart size is normal. There is no pericardial or pleural effusion. On high-resolution images, there is no evidence of bronchiectasis. On the supine inspiration images, the previously noted upper lobe ground-glass opacities have resolved. On the supine expiration images, there is no evidence of air trapping. On the prone inspiration images, linear scarring is noted at the left lung base. IMPRESSION: Resolution of previously noted patchy ground-glass opacities. Reviewed, Interpreted and Dictated by Kaleb Segura MD Transcribed by Maame Conde Authenticated and [facility]
== END 2025-02-04 23:59 | disposition home or self-care (01) ==
LOC: RAD 13:13
PROVIDERS: PCP Nurse Practitioner Family; Visit Provider Internal Medicine Pulmonary Disease
DX: J84.9 Interstitial pulmonary disease, unspecified (principal)
CPT/HCPCS: 71250; 94060; 94618; 94726; 94729